=== PATIENT | male | born 1980 | race Caucasian/White ===

== ENCOUNTER 2019-07-27 06:14 | Emergency (ER) | payer MEDICAID, OTHER, SELFPAY ==
[~2019-07-27] VITALS: Ht 185.4 cm; Wt 98.7 kg
--- NOTE | 2019-07-27 06:33 | NUR ---
Pt tense on dain. Pt reports being seen at [facility] yesterday for same (elevated liver enzymes, pancreatitis). Pt family reports pt had been sober for three years but started drinking again 3 days ago. Pt family member reports pt has been drinking all night and has only stopped for around 3 hours. Pt confirms this. Pt family member reports they brought him to [place] for detox this AM, but the RN there suggested he seek medical attention first. Pt in gown and placed on all monitors. PA at bedside.
[2019-07-27] MEDS ORDERED: PANTOPRAZOLE 40 MG IV IVPush STA (06:40)
[2019-07-27] MEDS ORDERED: PANTOPRAZOLE 40 MG IV ONE (06:57)
[2019-07-27] MEDS ORDERED: MORPHINE SULFATE 4 MG/ML, 1ML ONE ×2 (06:58→07:44)
[2019-07-27] MEDS ORDERED: ONDANSETRON 2MG/ML, 2ML ONE (06:58)
[2019-07-27] MEDS ORDERED: FAMOTIDINE 20 MG/2 ML ONE (06:58)
[2019-07-27 06:59] LABS: BASOPHILS # (AUTO) 0.25 x10^3/uL (0-0.1); BASOPHILS % (AUTO) 3 % (0-1); EOSINOPHILS # (AUTO) 0.07 x10^3/uL (0-0.4); EOSINOPHILS % (AUTO) 1 % (1-7); LYMPHOCYTES # (AUTO) 2.79 x10^3/uL (1-3.4); LYMPHOCYTES % (AUTO) 36 % (22-44); MD NO; MEAN CORPUSCULAR HEMOGLOBIN 32.3 pg (27.5-34.5); MEAN CORPUSCULAR HGB CONC 34.2 g/dL (33.2-36.2); MEAN CORPUSCULAR VOLUME 94.6 fL (81-97); MONOCYTES # (AUTO) 0.48 x10^3/uL (0.2-0.8); MONOCYTES % (AUTO) 6 % (2-9); NEUTROPHILS % (AUTO) 53 % (42-75); PLATELET COUNT 322 x10^3/uL (130-400); RED CELL DISTRIBUTION WIDTH 13.6 % (9.4-14.8)
[2019-07-27] MEDS ORDERED: SODIUM CHLORIDE 0.9% 1,000ML IVBOLUS ONE (07:00)
[2019-07-27] MEDS ORDERED: ONDANSETRON 2MG/ML, 2ML IVPush ONE (07:00)
[2019-07-27] MEDS ORDERED: FAMOTIDINE 20 MG/2 ML IVPush ONE (07:00)
[2019-07-27] MEDS: MORPHINE SULFATE 4 MG/ML, 1ML IVPush PRN ×2 (07:09→07:46)
[2019-07-27] MEDS ORDERED: OXYC-307 PO (07:12)
[2019-07-27] MEDS ORDERED: LISI-167 PO (07:12)
[2019-07-27 07:15] LABS: ALANINE AMINOTRANSFERASE 39 U/L (12-78); ALBUMIN 3.9 g/dL (3.4-5.0); ANION GAP 10 mmol/L (5-15); CALCIUM 8.3 mg/dL (8.5-10.1); CHLORIDE 110 mmol/L (98-107); CREATININE 0.77 mg/dL (0.7-1.3)
[2019-07-27 07:17] LABS: ALKALINE PHOSPHATASE 110 U/L (45-117); BILIRUBIN,TOTAL 0.7 mg/dL (0.2-1.0); TOTAL PROTEIN 7.2 g/dL (6.4-8.2)
--- NOTE | 2019-07-27 07:17 | NUR ---
report received from elmira merino.
--- NOTE | 2019-07-27 07:30 | NUR ---
us at bedside at this time.
[2019-07-27] MEDS ORDERED: METOCLOPRAMIDE 5 MG/ML, 2ML ONE (07:44)
--- NOTE | 2019-07-27 07:51 | NUR ---
pt medicated per emar. pt tolerated well.
[2019-07-27] MEDS ORDERED: METOCLOPRAMIDE 5 MG/ML, 2ML IVPush ONE (08:00)
[2019-07-27 08:29] VITALS: BP 138/85
--- NOTE | 2019-07-27 08:29 | NUR ---
pt's pain level is 7/10 at this time.
[2019-07-27] MEDS ORDERED: OMNIPAQUE 350 MG/ML, 100ML BOTTLE ONE (08:54)
--- NOTE | 2019-07-27 09:46 | NUR ---
Patient/Caregiver given discharge instructions and they have confirmed that they understand the instructions. Patient ambulatory with steady gait. pt left with all personal belongings.
== END 2019-07-27 09:47 | disposition home or self-care (01) ==
LOC: ED 09:30
DX: K29.20 Alcoholic gastritis without bleeding (principal); F10.220 Alcohol dependence with intoxication, uncomplicated; R10.13 Epigastric pain; I10 Essential (primary) hypertension; Y90.0 Blood alcohol level of less than 20 mg/100 ml
CPT/HCPCS: 36415; 74177; 76700; 80053; 80307; 83690; 85025; 96361; 96374; 96375; 96376; 99285; C9113; J2270; J2405; J2765; J3490; J7030; Q9967

== ENCOUNTER 2019-09-22 02:29 | Emergency (ER) | payer OTHER ==
[~2019-09-22] VITALS: Ht 185.4 cm; Wt 95.3 kg
[~2019-09-22 02:29] MED LIST: LISI-167 PO; OXYC-307 PO
[2019-09-22 02:37] VITALS: BP 169/102
--- NOTE | 2019-09-22 02:55 | NUR ---
PT TO ED WITH C/O ABDOMINAL PAIN. REPORTS HX OF LIVER FAILURE. +ETOH. REPORTS LAST DRINK 4 HOURS AGO.
--- NOTE | 2019-09-22 03:00 | NUR ---
REPORTS HE WAS SOBER FOR 3 YEARS AND JUST RECENTLY STARTED DRINKING AGAIN A FEW MONTHS AGO.
--- NOTE | 2019-09-22 03:09 | NUR ---
LABS DRAWN AND SENT
[2019-09-22 03:27] LABS: BASOPHILS # (AUTO) 0.03 x10^3/uL (0-0.1); BASOPHILS % (AUTO) 1 % (0-1); EOSINOPHILS # (AUTO) 0.05 x10^3/uL (0-0.4); EOSINOPHILS % (AUTO) 1 % (1-7); LYMPHOCYTES # (AUTO) 1.95 x10^3/uL (1-3.4); LYMPHOCYTES % (AUTO) 32 % (22-44); MD NO; MEAN CORPUSCULAR HEMOGLOBIN 34.7 pg (27.5-34.5); MEAN CORPUSCULAR HGB CONC 34.2 g/dL (33.2-36.2); MEAN CORPUSCULAR VOLUME 101.5 fL (81-97); MEAN PLATELET VOLUME 7.9 fL (7.4-10.4); MONOCYTES # (AUTO) 0.68 x10^3/uL (0.2-0.8); MONOCYTES % (AUTO) 11 % (2-9); NEUTROPHILS # (AUTO) 3.44 x10^3/uL (1.8-6.8); NEUTROPHILS % (AUTO) 56 % (42-75); PLATELET COUNT 141 x10^3/uL (130-400); RED BLOOD COUNT 4.73 x10^6/uL (4.38-5.82)
[2019-09-22 03:29] LABS: ALANINE AMINOTRANSFERASE 62 U/L (12-78); ALBUMIN 3.8 g/dL (3.4-5.0); ANION GAP 11 mmol/L (5-15); CALCIUM 8.8 mg/dL (8.5-10.1); CHLORIDE 109 mmol/L (98-107); CREATININE 0.64 mg/dL (0.7-1.3)
[2019-09-22 03:31] LABS: ALKALINE PHOSPHATASE 131 U/L (45-117); BILIRUBIN,TOTAL 0.2 mg/dL (0.2-1.0); TOTAL PROTEIN 7.2 g/dL (6.4-8.2)
--- NOTE | 2019-09-22 03:55 | NUR ---
PROVIDER AT BEDSIDE FOR RECHECK.
== END 2019-09-22 04:04 | disposition left against medical advice (07) ==
LOC: ED 03:18
DX: R10.13 Epigastric pain (principal); F10.129 Alcohol abuse with intoxication, unspecified; R00.0 Tachycardia, unspecified; I10 Essential (primary) hypertension; F17.200 Nicotine dependence, unspecified, uncomplicated; Z72.9 Problem related to lifestyle, unspecified; Y90.9 Presence of alcohol in blood, level not specified
CPT/HCPCS: 36415; 80053; 80307; 83690; 85025; 93005; 99284

== ENCOUNTER 2019-10-13 17:20 | Emergency (ER) | payer SELFPAY ==
[~2019-10-13] VITALS: Ht 185.4 cm; Wt 93.4 kg
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
--- NOTE | 2019-10-13 17:49 | NUR ---
Pt attemptiing to get out of bed and not safe to ambulate. Pt soiled his clothes. Pt unable to ambulate safely and unabel to follow rn instructions. Pt placed in bed and safetyl rails back in place.
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
--- NOTE | 2019-10-13 18:23 | NUR ---
PT SLEEPING ON GURNEY, CHEST RISE AND FALL OBSERVED. SITTER OUTSIDE ROOM FOR SAFETY.
--- NOTE | 2019-10-13 19:02 | NUR ---
BEDSIDE REPORT FROM HEMANT SALAZAR, PT CARE TRANSFERRED AT THIS TIME. PT IS UNSTEADY WHEN SITTING UP IN RCOLOGNE, RESP WNL, ABC INTACT, P/W/D, FCS BUT SLURRED SPEECH AND ETOH ODOR NOTED. CALL LIGHT ON BED, SITTER WITHIN LINE OF SIGHT, TM.
--- NOTE | 2019-10-13 20:10 | NUR ---
pt resting in gurney, under blankets, denies additional needs at this time, given meal tray for comfort, RESP WNL, ABC intact, call light on lap. WCTM. sitter in line of Otto bright MD at for recheck and POC.
--- NOTE | 2019-10-13 20:38 | NUR ---
MT: FATHER (MAXWELL) WOULD LIKE TO BE UPDATED - [phone]
--- NOTE | 2019-10-13 21:00 | NUR ---
PT RESTING IN GURNEY, CHEST RISE AND FALL NOTED, RESP HEARD AND WNL, P/W/D, CALL LIGHT NEXT TO PT ON BED, NAD, WCTM. SITTER IN LINE OF SIGHT FOR SAFETY.
[2019-10-13 21:48] VITALS: BP 152/96
--- NOTE | 2019-10-13 22:03 | NUR ---
PT GIVEN SHIRT TO LEAVE IN AND HIS PERSONAL BELONGINGS TO TAKE WITH THAT WERE SATURATED WITH URINE. PT DENIED NEW PANTS STATING "I JUST WANT TO WEAR MY OWN SHORTS" PT GIVEN A TAXI VOUCHER TO GET HOME, AMBULATED WITH A MODERATELY STEADY GAIT, DENIES ADDITIONAL NEEDS OR QUESTIONS AT THIS TIME. NO BELONGINGS LEFT BEHIND IN ROOM OTHER THAN UNDERWEAR WHICH WAS SATURATED IN URINE WELL AND DISPOSED OF APPROPRIATELY. PT SKIN COLOR WAS WNL WARM AND DRY, ABC INTACT, MAEx4 UPON TIME OF DC.
[2019-10-14] MEDS ORDERED: OXYC-307 PO (22:29)
[2019-10-14] MEDS ORDERED: dilaudid PO (22:29)
== END 2019-10-13 22:07 | disposition home or self-care (01) ==
LOC: ED 17:51
DX: F10.129 Alcohol abuse with intoxication, unspecified (principal); I10 Essential (primary) hypertension; F17.200 Nicotine dependence, unspecified, uncomplicated; Y90.9 Presence of alcohol in blood, level not specified
CPT/HCPCS: 99285

== ENCOUNTER 2019-10-14 21:41 | Emergency (ER) | payer OTHER ==
[~2019-10-14] VITALS: Ht 185.4 cm; Wt 89.0 kg
[2019-10-14] MEDS ORDERED: OXYC-307 PO (22:29)
[2019-10-14] MEDS ORDERED: dilaudid PO (22:29)
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
--- NOTE | 2019-10-14 22:36 | NUR ---
pt father reported to MARTIN dunn tpt last drink was today and he typically consumes about a "pint in a sitting and the individual 90 proof shots"
--- NOTE | 2019-10-14 22:45 | NUR ---
alessandra KWONG at for eval and POC. Pt given warm blankets for comfort, as RN was leaving room pt closed his eyes and appeared to be resting, NAD, P/W/D, RESP WNL, VSS. WCTM.
[2019-10-14 22:46] VITALS: BP 142/92
[2019-10-14] MEDS ORDERED: ACETAMINOPHEN 500 MG TABLET ONE (22:53)
[2019-10-14] MEDS ORDERED: KETOROLAC 30 MG/1 ML ONE (22:53)
[2019-10-14] MEDS ORDERED: KETOROLAC 30 MG/1 ML IM SCH (23:00)
[2019-10-14] MEDS ORDERED: ACETAMINOPHEN 500 MG TABLET PO ONE (23:00)
--- NOTE | 2019-10-14 23:01 | NUR ---
RN went to medicate pt, when RN got to room pt gown found on ground and monitor stickers on bed. Pt assumed to have eloped at this time.
== END 2019-10-14 23:03 | disposition home or self-care (01) ==
LOC: ED 22:43
DX: M54.5 Low back pain (principal); F10.120 Alcohol abuse with intoxication, uncomplicated; F17.210 Nicotine dependence, cigarettes, uncomplicated; I10 Essential (primary) hypertension; Y90.9 Presence of alcohol in blood, level not specified
CPT/HCPCS: 99281; 99406

== ENCOUNTER 2019-10-26 14:55 | Emergency (ER) | payer SELFPAY ==
[~2019-10-26] VITALS: Ht 185.4 cm; Wt 97.5 kg
[~2019-10-26 14:55] MED LIST changes: +dilaudid PO
[2019-10-26 14:59] VITALS: BP 151/91
--- NOTE | 2019-10-26 15:06 | NUR ---
PT AMBULATES TO ROOM FROM TRIAGE.
[2019-10-26 15:46] LABS: ALANINE AMINOTRANSFERASE 75 U/L (12-78); ANION GAP 9 mmol/L (5-15); CALCIUM 8.3 mg/dL (8.5-10.1); CHLORIDE 109 mmol/L (98-107)
[2019-10-26 15:47] LABS: BASOPHILS # (AUTO) 0.08 x10^3/uL (0-0.1); BASOPHILS % (AUTO) 1 % (0-1); EOSINOPHILS # (AUTO) 0.03 x10^3/uL (0-0.4); EOSINOPHILS % (AUTO) 0 % (1-7); LYMPHOCYTES # (AUTO) 1.82 x10^3/uL (1-3.4); LYMPHOCYTES % (AUTO) 21 % (22-44); MD NO; MEAN CORPUSCULAR HEMOGLOBIN 35.8 pg (27.5-34.5); MEAN CORPUSCULAR HGB CONC 34.2 g/dL (33.2-36.2); MEAN CORPUSCULAR VOLUME 104.5 fL (81-97); MEAN PLATELET VOLUME 7.2 fL (7.4-10.4); MONOCYTES # (AUTO) 0.72 x10^3/uL (0.2-0.8); MONOCYTES % (AUTO) 8 % (2-9); NEUTROPHILS # (AUTO) 6.01 x10^3/uL (1.8-6.8); NEUTROPHILS % (AUTO) 69 % (42-75); PLATELET COUNT 230 x10^3/uL (130-400); RED BLOOD COUNT 4.48 x10^6/uL (4.38-5.82); RED CELL DISTRIBUTION WIDTH 15.6 % (9.4-14.8)
[2019-10-26] MEDS ORDERED: KETOROLAC 60 MG/2 ML ONE (15:58)
[2019-10-26] MEDS ORDERED: KETOROLAC 30 MG/1 ML IM ONE (16:00)
--- NOTE | 2019-10-26 16:02 | NUR ---
MEDS ADMIN PER JUL.
[2019-10-26 16:03] LABS: ALKALINE PHOSPHATASE 122 U/L (45-117); BILIRUBIN,TOTAL 0.7 mg/dL (0.2-1.0); TOTAL PROTEIN 7.2 g/dL (6.4-8.2)
--- NOTE | 2019-10-26 16:14 | NUR ---
ALL RESULTS ARE BACK AT THIS TIME. CHART UP FOR RECHECK.
--- NOTE | 2019-10-26 16:28 | NUR ---
MEAL TEMPERER: PT OBSERVED LEAVING THE DEPARTMENT. RETURNED AFTER SMOKING A CIGARETTE.
[2019-10-26] MEDS ORDERED: CHLORDIAZEPOXIDE 25 MG CAPSULE ONE (16:30)
[2019-10-26] MEDS ORDERED: CHLORDIAZEPOXIDE 25 MG CAPSULE PO ONE (16:30)
--- NOTE | 2019-10-26 16:39 | NUR ---
MEDS ADMIN PER JUL. LEFT MESSAGE FOR CALL BACK FROM [facility].
== END 2019-10-26 17:07 | disposition home or self-care (01) ==
LOC: ED 15:42
DX: F10.220 Alcohol dependence with intoxication, uncomplicated (principal); R10.9 Unspecified abdominal pain; R00.0 Tachycardia, unspecified; F17.200 Nicotine dependence, unspecified, uncomplicated; I10 Essential (primary) hypertension; Y90.0 Blood alcohol level of less than 20 mg/100 ml
CPT/HCPCS: 36415; 80053; 80307; 83690; 85025; 93005; 96372; 99284; J1885

== ENCOUNTER 2019-11-13 05:59 | Emergency (ER) | payer MEDICAID, OTHER ==
[~2019-11-13] VITALS: Ht 177.8 cm; Wt 97.0 kg
--- NOTE | 2019-11-13 06:12 | NUR ---
PT BIB EMS FROM [facility]. PT TREMULOUS ON ARRIVAL AND REPORTING CP, BACK PAIN AND NAUSEA. REPORTS ETOH ABUSE APPX 1/5 VODKA PER DAY. LAST USE APPX 24HRS AGO. [facility] PROVIDED PT WITH ATIVAN TO CONTROL SYMPTOMS. EMS PROVIDED ASA AND ZOFRAN TO PT. PT REPORTS SOME RELIEF FROM NAUSEA. PT PLACED ON ALL MONTIORING ,CALL LIGHT WITHIN REACH, ALL SAFETY MEASURES IN PLACE. EKG PERFORMED.
[2019-11-13] MEDS ORDERED: FAMOTIDINE 20 MG/2 ML ONE (06:16)
[2019-11-13] MEDS ORDERED: ONDANSETRON 2MG/ML, 2ML ONE (06:16)
[2019-11-13] MEDS ORDERED: LORazepam 2 MG/ML, 1ML ONE (06:16)
[2019-11-13] MEDS ORDERED: ONDANSETRON 2MG/ML, 2ML IVPush ONE (06:30)
[2019-11-13] MEDS ORDERED: SODIUM CHLORIDE FLUSH 10ML SYR IVF ONE (06:30)
[2019-11-13] MEDS ORDERED: LORazepam 2 MG/ML, 1ML IVPush ONE (06:30)
[2019-11-13] MEDS ORDERED: SODIUM CHLORIDE 0.9% 1,000ML IVBOLUS ONE (06:30)
[2019-11-13] MEDS ORDERED: FAMOTIDINE 20 MG/2 ML IV ONE (06:30)
[2019-11-13 06:51] LABS: INTERNATIONAL NORMALIZED RATIO 1.07 (0.93-1.1); PROTHROMBIN TIME 11.4 Seconds (9.6-11.5)
[2019-11-13 06:55] LABS: ALANINE AMINOTRANSFERASE 92 U/L (12-78); ALBUMIN 3.3 g/dL (3.4-5.0); ANION GAP 8 mmol/L (5-15); CALCIUM 7.8 mg/dL (8.5-10.1); CHLORIDE 102 mmol/L (98-107); CREATININE 0.75 mg/dL (0.7-1.3)
--- NOTE | 2019-11-13 06:55 | NUR ---
TOOK REPORT FROM TOPHER SALAZAR, ASSUME CARE
[2019-11-13 07:00] LABS: ALKALINE PHOSPHATASE 130 U/L (45-117); BILIRUBIN,TOTAL 1.5 mg/dL (0.2-1.0); TOTAL PROTEIN 6.3 g/dL (6.4-8.2)
[2019-11-13 07:06] LABS: MEAN CORPUSCULAR HEMOGLOBIN 35.8 pg (27.5-34.5); MEAN CORPUSCULAR HGB CONC 34.4 g/dL (33.2-36.2); MEAN CORPUSCULAR VOLUME 104.1 fL (81-97); PLATELET COUNT 59 x10^3/uL (130-400); RED BLOOD COUNT 3.93 x10^6/uL (4.38-5.82); RED CELL DISTRIBUTION WIDTH 14.6 % (9.4-14.8)
[2019-11-13 07:08] LABS: BASOPHILS # (AUTO) 0.05 x10^3/uL (0-0.1); BASOPHILS % (AUTO) 1 % (0-1); EOSINOPHILS # (AUTO) 0.04 x10^3/uL (0-0.4); EOSINOPHILS % (AUTO) 1 % (1-7); LYMPHOCYTES # (AUTO) 0.55 x10^3/uL (1-3.4); LYMPHOCYTES % (AUTO) 14 % (22-44); MD SCAN; MONOCYTES # (AUTO) 0.33 x10^3/uL (0.2-0.8); MONOCYTES % (AUTO) 9 % (2-9); NEUTROPHILS # (AUTO) 2.83 x10^3/uL (1.8-6.8); NEUTROPHILS % (AUTO) 75 % (42-75)
--- NOTE | 2019-11-13 09:33 | NUR ---
REPORT TAKEN FROM RN JANKI, THIS RN ASSUMING CARE AT THIS TIME. PT IS SLEEPING, RESPS EVEN AND UNLABORED. NSR ON HARNESS PULLER WITH NO ECTOPY NOTED, RATE 60'S. IVF COMPLETE. ALL RESULTS BACK, CHART UP FOR RECHECK, AWAITING PROVIDER AND DISPO.
[2019-11-13 10:11] VITALS: BP 154/106
--- NOTE | 2019-11-13 10:26 | NUR ---
PIV DC'D WITH TIP INTACT. PT PROVIDED WITH CAB VOUCHER. PT GIVEN DC RX WITH EDUCATION FOR PEPCID, CARAFATE AND ZOFRAN. PT GIVEN VERBAL AND WRITTEN DC RX. PT EDUCATED REGARDING PCP F/U. PT STATES HE ARRIVED WITH PAPERWORK, THIS RN SEARCHED ROOM AND DID NOT FIND ANY BELONGINGS OR PAPERWORK LEFT BEHIND. PT AMBULATORY WITH STEADY GAIT AT DC, PT WHEELED TO DC DESK VIA WC, REG TO CALL CAB. DONOVAN AT [place].
== END 2019-11-13 10:27 | disposition home or self-care (01) ==
LOC: ED 06:18
DX: R07.2 Precordial pain (principal); F10.239 Alcohol dependence with withdrawal, unspecified; I10 Essential (primary) hypertension; F17.200 Nicotine dependence, unspecified, uncomplicated; Y90.9 Presence of alcohol in blood, level not specified
CPT/HCPCS: 36415; 74022; 80053; 83605; 83690; 83880; 85025; 85610; 93005; 96374; 96375; 99285; J2060; J2405; J3490; J7030

== ENCOUNTER 2020-03-11 23:43 | Emergency (ER) | payer MEDICAID ==
[~2020-03-11] VITALS: Ht 185.4 cm; Wt 90.0 kg
--- NOTE | 2020-03-11 23:51 | NUR ---
PT BIB [facility] TODAY DUE TO BEING AT HOME AND PARENTS NOTICED WHILE PT WAS EATING HE BEGAN MISSING HIS MOUTH AND STARTED SEEM CONFUSED. PARENTS CALLED [facility] AND PT REQUESTED TO BE BROUGHT TO [facility]. PT PT HAS ETOH ODOR, CANNOT RECALL HOW MUCH HE DRANK TODAY. PT IS COVERED IN BRUISES, STATES THEY ARE ALL FROM FALLS, DENIES ANY ABUSE. PT ANOx4, GROSS NEURO INTACT. MOVES ALL EXTREMITIES. PT PLACED DON SPO2/BP/ECG MONITORING TERI AT BS FOR EVAL AND POC.
[2020-03-12] MEDS ORDERED: THIAMINE 100MG TABLET PO ONE
[2020-03-12] MEDS ORDERED: SODIUM CHLORIDE 0.9% 1,000ML IVBOLUS ONE
[2020-03-12] MEDS ORDERED: LORazepam 2 MG/ML, 1ML IVPush ONE
[2020-03-12] MEDS ORDERED: ONDANSETRON 2MG/ML, 2ML IVPush ONE
[2020-03-12] MEDS ORDERED: ONDANSETRON 2MG/ML, 2ML ONE (00:08)
[2020-03-12] MEDS ORDERED: THIAMINE 100MG TABLET ONE (00:08)
[2020-03-12] MEDS ORDERED: LORazepam 2 MG/ML, 1ML ONE (00:08)
[2020-03-12 00:19] LABS: BASOPHILS % (AUTO) 0 % (0-1); EOSINOPHILS % (AUTO) 1 % (1-7); LYMPHOCYTES % (AUTO) 26 % (22-44); MEAN CORPUSCULAR HGB CONC 33.9 g/dL (33.2-36.2); MONOCYTES % (AUTO) 11 % (2-9); NEUTROPHILS % (AUTO) 62 % (42-75); PLATELET COUNT 55 x10^3/uL (130-400); RED BLOOD COUNT 3.93 x10^6/uL (4.38-5.82); RED CELL DISTRIBUTION WIDTH 17.3 % (9.4-14.8)
[2020-03-12 00:32] LABS: ALANINE AMINOTRANSFERASE 105 U/L (12-78); ALBUMIN 3.6 g/dL (3.4-5.0); ANION GAP 5 mmol/L (5-15); CALCIUM 7.8 mg/dL (8.5-10.1); CHLORIDE 104 mmol/L (98-107); CREATININE 0.72 mg/dL (0.7-1.3); SALICYLATE LEVEL < 1.7 mg/dL (2.8-20.0)
[2020-03-12 00:34] LABS: ALKALINE PHOSPHATASE 153 U/L (45-117); BILIRUBIN,TOTAL 0.7 mg/dL (0.2-1.0)
[2020-03-12 00:50] LABS: MD SCAN
--- NOTE | 2020-03-12 01:07 | NUR ---
BREAK RN - PT PLACED ON NC 1L DO TO LOW O2 SATS WHEN PT SLEPT
--- NOTE | 2020-03-12 02:10 | NUR ---
late entry d/t pt care: pt resting on gurney, eyes closed, appears comfortable, even and unlabored respirations. SHAHRIAR, brianda. MTF
--- NOTE | 2020-03-12 03:17 | NUR ---
pt resting on gurney, eyes closed, appears comfortable, even and unlabored respirations. NAD, vss, wctm. MTF
--- NOTE | 2020-03-12 04:12 | NUR ---
pt resting on gurney, eyes closed, appears comfortable, no change in condition, even and unlabored respirations. NAD, vss, wctm. MTF
[2020-03-12 04:30] VITALS: BP 125/95
== END 2020-03-12 04:47 ==
LOC: ED 03-12 01:49
DX: F10.220 Alcohol dependence with intoxication, uncomplicated (principal); R94.5 Abnormal results of liver function studies; I10 Essential (primary) hypertension; F17.210 Nicotine dependence, cigarettes, uncomplicated; Z72.9 Problem related to lifestyle, unspecified; Y90.9 Presence of alcohol in blood, level not specified
CPT/HCPCS: 36415; 70450; 80053; 80307; 85025; 93005; 96361; 96374; 96375; 99285; 99406; J2060; J2405; J7030